=== PATIENT | female | born 1960 | race Caucasian/White ===

== ENCOUNTER → 2020-12-18 | Outpatient (CLI) | payer BC, OTHER ==
[~2020-12-18] MED LIST: ASPI81TA26 PO; BUPR300T92; CALC600T57 PO; CITA10TA5; CITA40TA4 PO; CLAR10CA3 PO; ERGO500029; LEVO25CA; LISI10TA22 PO; LISI20TA33; MECL-86; PRAV40TA2 PO; VENL75CA47
== END ==
LOC: M LABSMTC 10:58
PROVIDERS: ATTEND Anesthesiology
DX: Z01.812 Encounter for preprocedural laboratory examination (principal)

== ENCOUNTER 2020-12-22 07:45 | Day surgery (SDC) | payer BC, OTHER ==
[~2020-12-22] VITALS: Ht 152.4 cm; Wt 112.5 kg
[~2020-12-22 07:45] MED LIST changes: +NS 1,000 ML IV ONE
[2020-12-22] MEDS ORDERED: propofoL 200 MG/20 ML VIAL As Ordered ONE (09:02)
[2020-12-22] MEDS ORDERED: LIDOCAINE 2% 100MG/5ML SDV (FOR ANES.) As Ordered ONE (09:02)
--- NOTE | 2020-12-22 09:22 | ROOR ---
Patient Name: Jailene Ambriz Procedure Date: 12/22/2020 8:49 AM Date of : 1960 Age: 60 Room: [facility] Gender: Female Note Status: Finalized Procedure: Colonoscopy Indications: High risk colon cancer surveillance: Personal history of colonic polyps Providers: Ramses Cardoza MD Referring MD: Aurora RAZA MD Requesting Provider: Medicines: Monitored Anesthesia Care Complications: No immediate complications. Procedure: Pre-Anesthesia Assessment: - The heart rate, respiratory rate, oxygen saturations, blood pressure, adequacy of pulmonary ventilation, and response to care were monitored throughout the procedure. The Colonoscope was introduced through the anus and advanced to the terminal ileum, with identification of the appendiceal orifice and IC valve. The colonoscopy was performed without difficulty. The patient tolerated the procedure well. The quality of the bowel preparation was good. Findings: The perianal and digital rectal examinations were normal. 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 This was biopsied with a cold forceps for histology. Four sessile polyps were found in the descending colon and splenic flexure. The polyps were diminutive in size. These polyps were removed with a cold snare. Resection and retrieval were complete. A 5 mm polyp was found in the sigmoid colon. The polyp was sessile. The polyp was removed with a cold snare. Resection and retrieval were complete. Two sessile polyps were found in the rectum. The polyps were 3 to 5 mm in size. These polyps were removed with a cold snare. Resection and retrieval were complete. Mild sigmoid diverticulosis and small internal hemorrhoids. The exam was otherwise without abnormality on direct and retroflexion views. 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 Biopsied. - Four diminutive polyps in the descending colon and at the splenic flexure, removed with a cold snare. Resected and retrieved. - One 5 mm polyp in the sigmoid colon, removed with a cold snare. Resected and retrieved. - Two 3 to 5 mm polyps in the rectum, removed with a cold snare. Resected and retrieved. - Mild sigmoid diverticulosis and small internal hemorrhoids. - The examination was otherwise normal on direct and retroflexion views. Recommendation: - Repeat colonoscopy in 3 years for surveillance. Procedure Code(s): --- Professional --- 55410, Colonoscopy, flexible; with removal of tumor(s), polyp(s), or other lesion(s) by snare technique 27743, 59, Colonoscopy, flexible; with biopsy, single or multiple Diagnosis Code(s): --- Professional --- Z86.010, Personal history of colonic polyps D49.0, Neoplasm of unspecified behavior of digestive system K63.5, Polyp of colon K62.1, Rectal polyp CPT copyright 2019 [employer]. All rights reserved. The codes documented in this report are preliminary and upon adult education professional review may be revised to meet current compliance requirements. Ramses Cardoza MD Ramses Cardoza MD 12/22/2020 9:21:53 AM Electronically signed by Ramses Cardoza MD Number of Addenda: 0 Note Initiated On: 12/22/2020 8:49 AM Estimated Blood Loss: Estimated blood loss: none.
[2020-12-22 09:40] VITALS: BP 178/85
== END 2020-12-22 09:57 | disposition home or self-care (01) ==
LOC: M OPP 07:45
PROVIDERS: ATTEND Internal Medicine Gastroenterology
DX: Z12.11 Encounter for screening for malignant neoplasm of colon (principal); Z86.010 Personal history of colon polyps; D49.0 Neoplasm of unspecified behavior of digestive system; D12.3 Benign neoplasm of transverse colon; D12.5 Benign neoplasm of sigmoid colon; K62.1 Rectal polyp; K57.30 Diverticulosis of large intestine without perforation or abscess without bleeding; K64.8 Other hemorrhoids; Z79.82 Long term (current) use of aspirin; Z79.899 Other long term (current) drug therapy; Z88.8 Allergy status to other drugs, medicaments and biological substances; Z91.048 Other nonmedicinal substance allergy status

== ENCOUNTER 2021-06-06 09:59 | Day surgery (SDC) | payer OTHER ==
[~2021-06-06] VITALS: Ht 152.4 cm; Wt 108.9 kg
[~2021-06-06 09:59] MED LIST changes: -CITA10TA5; +CITA10TA7; -CITA40TA4 PO; +CITA40TA7 PO; +CYCL5TAB PO; +DULO1CAP4 PO; +FLUTISP INH; +LEVO25TA5 PO; +LIDOCAINE 1% MDV 20ML VIAL XX ONE; -NS 1,000 ML IV ONE; +SODIUM BICARBONATE 8.4% INJ 50MEQ 50 ML VIAL XX ONE
[2021-06-06] MEDS ORDERED: BACITRACIN OINTMENT 30GM TUBE As Ordered ONE (11:48)
[2021-06-06 12:35] VITALS: BP 121/58
[2021-06-06] MEDS ORDERED: TRAM50TA2 PO (12:41)
== END 2021-06-06 13:08 | disposition home or self-care (01) ==
LOC: M SDC 09:59
PROVIDERS: ATTEND Orthopaedic Surgery Hand Surgery
DX: M20.011 Mallet finger of right finger(s) (principal); I10 Essential (primary) hypertension; F32.9 Major depressive disorder, single episode, unspecified; F41.9 Anxiety disorder, unspecified; E78.5 Hyperlipidemia, unspecified; E66.9 Obesity, unspecified; Z79.82 Long term (current) use of aspirin; Z79.899 Other long term (current) drug therapy; Z98.84 Bariatric surgery status; Z88.2 Allergy status to sulfonamides

== ENCOUNTER → 2021-06-13 | Outpatient (CLI) | payer OTHER ==
[~2021-06-13] MED LIST changes: -LIDOCAINE 1% MDV 20ML VIAL XX ONE; -SODIUM BICARBONATE 8.4% INJ 50MEQ 50 ML VIAL XX ONE; +TRAM50TA2 PO
== END ==
LOC: M SOG 15:50
PROVIDERS: ATTEND Physician Assistant
DX: Z53.9 Procedure and treatment not carried out, unspecified reason (principal)

== ENCOUNTER → 2021-06-14 | Outpatient (CLI) | payer OTHER | LOC: M SOG 07:59 | PROVIDERS: ATTEND Physician Assistant | DX: M20.011 Mallet finger of right finger(s) (principal) ==

== ENCOUNTER → 2021-07-27 | Outpatient (CLI) | payer OTHER | LOC: M LABSMTC 11:39 | PROVIDERS: ATTEND Anesthesiology | DX: Z01.812 Encounter for preprocedural laboratory examination (principal); Z20.822 Contact with and (suspected) exposure to COVID-19 ==

== ENCOUNTER 2021-08-01 09:27 | Day surgery (SDC) | payer OTHER ==
[~2021-08-01] VITALS: Ht 152.4 cm; Wt 108.9 kg
[~2021-08-01 09:27] MED LIST changes: +ACETAMINOPHEN 1000MG 100ML IV BTL (OFIRMEV) (J0131 PER 10MG) As Ordered ONE; +KETOROLAC 60MG 2ML VIAL As Ordered ONE; +LIDOCAINE 2% 100MG/5ML SDV (FOR ANES.) As Ordered ONE; +LR 1,000 ML IV ONE; +MIDAZOLAM INJ 2MG/2ML VIAL (J2250 PER 1MG) As Ordered ONE; +ONDANSETRON 4MG/2ML VIAL As Ordered ONE; +ROCURONIUM BROMIDE 50 MG/5 ML VIAL As Ordered ONE; +SUGAMMADEX SODIUM 500 MG/5 ML VIAL (BRIDION) As Ordered ONE; +dexameTHASONE 4 MG/ML 1ML VIAL (J1100 PER 1MG) As Ordered ONE; +fentaNYL 100 MCG/2 ML INJECTION As Ordered ONE; +propofoL 200 MG/20 ML VIAL As Ordered ONE
[2021-08-01] MEDS ORDERED: ACET-897 PO (10:00)
[2021-08-01] MEDS ORDERED: BUPIVACAINE HCL 0.25% 30ML VIAL As Ordered ONE (10:43)
[2021-08-01] MEDS ORDERED: TRAM50TA2 PO (11:56)
[2021-08-01] MEDS ORDERED: fentaNYL 100 MCG/2 ML INJECTION As Ordered ONE (12:00)
[2021-08-01] MEDS: fentaNYL 100 MCG/2 ML INJECTION IV PRN ×2 (12:02→12:15)
[2021-08-01] MEDS ORDERED: HYDROMORPHONE HCL 0.5 MG/ 0.5 ML SYRINGE (J1170 PER 1) IV PRN (12:15)
[2021-08-01] MEDS ORDERED: oxyCODONE 5MG TAB PO PRN (12:15)
[2021-08-01] MEDS ORDERED: LR 1,000 ML IV SCH (12:15)
[2021-08-01] MEDS ORDERED: ONDANSETRON 4MG/2ML VIAL IV PRN (12:15)
[2021-08-01 13:30] VITALS: BP 133/74
== END 2021-08-01 13:50 | disposition home or self-care (01) ==
LOC: M SDC 09:27
PROVIDERS: ATTEND Orthopaedic Surgery Hand Surgery
DX: G56.01 Carpal tunnel syndrome, right upper limb (principal); Z47.2 Encounter for removal of internal fixation device; E03.9 Hypothyroidism, unspecified; I10 Essential (primary) hypertension; E78.5 Hyperlipidemia, unspecified; G47.33 Obstructive sleep apnea (adult) (pediatric); K57.92 Diverticulitis of intestine, part unspecified, without perforation or abscess without bleeding; F41.9 Anxiety disorder, unspecified; F32.9 Major depressive disorder, single episode, unspecified; Z79.82 Long term (current) use of aspirin; Z79.899 Other long term (current) drug therapy; Z88.2 Allergy status to sulfonamides; Z88.8 Allergy status to other drugs, medicaments and biological substances
CPT/HCPCS: 20680; 29848; 76000; 88300; J1100; J1885; J2250; J2405; J3010

== ENCOUNTER → 2021-08-10 | Outpatient (CLI) | payer OTHER ==
[~2021-08-10] MED LIST changes: +ACET-897 PO; -ACETAMINOPHEN 1000MG 100ML IV BTL (OFIRMEV) (J0131 PER 10MG) As Ordered ONE; -KETOROLAC 60MG 2ML VIAL As Ordered ONE; -LIDOCAINE 2% 100MG/5ML SDV (FOR ANES.) As Ordered ONE; -LR 1,000 ML IV ONE; -MIDAZOLAM INJ 2MG/2ML VIAL (J2250 PER 1MG) As Ordered ONE; -ONDANSETRON 4MG/2ML VIAL As Ordered ONE; -ROCURONIUM BROMIDE 50 MG/5 ML VIAL As Ordered ONE; -SUGAMMADEX SODIUM 500 MG/5 ML VIAL (BRIDION) As Ordered ONE; -dexameTHASONE 4 MG/ML 1ML VIAL (J1100 PER 1MG) As Ordered ONE; -fentaNYL 100 MCG/2 ML INJECTION As Ordered ONE; -propofoL 200 MG/20 ML VIAL As Ordered ONE
== END ==
LOC: M SOG 10:15
PROVIDERS: ATTEND Orthopaedic Surgery Hand Surgery
DX: M20.011 Mallet finger of right finger(s) (principal)